=== PATIENT | male | born 1950 | race Caucasian/White ===

== ENCOUNTER 2016-09-18 16:21 | Inpatient (IN) | payer OTHER, MEDICARE ==
[~2016-09-18] VITALS: Ht 180.3 cm; Wt 136.5 kg
[~2016-09-18 16:21] MED LIST: LOVA1TAB47 PO; TELM40 PO
[2016-09-25] MEDS ORDERED: ENOX40P SQ (06:40)
[2016-09-25] MEDS ORDERED: ASPI81CH37 CHEW (06:41)
[2016-09-25] MEDS ORDERED: HYDR-3288 PO (06:41)
[2016-09-25] MEDS ORDERED: BISACODYL 10 MG SUPP RECTAL PRN (06:45)
[2016-09-25] MEDS ORDERED: SODIUM CHLORID 0.9% 500 ML IV PRN (06:45)
[2016-09-25] MEDS ORDERED: ROPIVACAINE PERI-ARTICULAR INJECTION. P-ARTICULR SCH ×5 (06:45)
[2016-09-25] MEDS ORDERED: SODIUM CHLORIDE 0.9% FLUSH 5 ML FLUSH IVF PRN (06:45)
[2016-09-25] MEDS ORDERED: ceFAZolin 2 GM PREMIX 50 ML IV SCH (06:45)
[2016-09-25] MEDS ORDERED: INSULIN HUMAN REGULAR 1,000 UNITS/10 ML VIAL SQ PRN (06:45)
[2016-09-25] MEDS ORDERED: DEXAMETHASONE SOD PHOS 20 MG/5 ML VIAL IV SCH (06:45)
[2016-09-25] MEDS ORDERED: SODIUM CHLORIDE 0.9% IV SCH (06:45)
[2016-09-25] MEDS ORDERED: NALOXONE HCL 0.4 MG/ML AMP IV PRN (06:45)
[2016-09-25] MEDS ORDERED: ALUMINUM/MAGNESIUM/SIMETH 30 ML CUP PO PRN (06:45)
[2016-09-25] MEDS ORDERED: METOPROLOL TARTRATE 25 MG TAB PO PRN (06:45)
[2016-09-25] MEDS ORDERED: POVIDONE IODINE 7.5% SCRUB 118 ML BOTTLE TOPICAL SCH (06:45)
[2016-09-25] MEDS ORDERED: POVIDONE IODINE 5% (ANTISEPSIS KIT) 4 APPLICATIONS EACH NARE PRN (06:45)
[2016-09-25] MEDS ORDERED: VANCOMYCIN 1000 MG/NS 250 ML (for <70 kg) IV SCH ×2 (06:45)
[2016-09-25] MEDS ORDERED: Post-op Orders (for Pharmacy) MISC XX ONE (06:45)
[2016-09-25] MEDS ORDERED: diphenhydrAMINE HCL 50 MG/ML VIAL IV PRN (06:45)
[2016-09-25] MEDS ORDERED: CHLORHEXIDINE GLUCONATE 2 % 1 PACK (2 CLOTHS) TOPICAL PRN (06:45)
[2016-09-25] MEDS ORDERED: ZOLPIDEM TARTRATE 5 MG TAB PO PRN (06:45)
[2016-09-25] MEDS ORDERED: LACTATED RINGER'S 1000 ML IV PRN (06:45)
[2016-09-25] MEDS ORDERED: TRANEXAMIC ACID IV SCH (06:45)
[2016-09-25] MEDS ORDERED: ONDANSETRON HCL 4 MG/2 ML VIAL IVP PRN (06:45)
[2016-09-25] MEDS ORDERED: CHLORHEXIDINE GLUCONATE 4% SOLN 120 ML BTL TOPICAL SCH (06:45)
[2016-09-25] MEDS ORDERED: TRANEXAMIC PERI-ARTICULAR 3,000 MG/NS 100 ML P-ARTICULR SCH ×2 (06:45)
[2016-09-25] MEDS ORDERED: ACETAMINOPHEN/HYDROcodone 325 MG/7.5 MG TAB PO PRN (06:45)
[2016-09-25] MEDS ORDERED: OMEP20TA PO (06:55)
[2016-09-25] MEDS ORDERED: VITA100064 PO (06:55)
[2016-09-25] MEDS ORDERED: FURO40TA PO (06:55)
[2016-09-25] MEDS ORDERED: LISI-515 PO (06:55)
[2016-09-25] MEDS ORDERED: ATOR20TA15 PO (06:55)
[2016-09-25] MEDS ORDERED: LISI20TA PO (06:55)
[2016-09-25 07:02] VITALS: BP 131/69; PULSE 56; RESP 18; TEMP 98.2; O2SAT 97
[2016-09-25] MEDS ORDERED: GENTAMICIN SULFATE 80 MG/2 ML VIAL ONE (07:19)
[2016-09-25] MEDS ORDERED: BUPIVACAINE LIPOSOME PF 1.3% 20 ML VIAL ONE (07:52)
[2016-09-25] MEDS ORDERED: MIDAZOLAM HCL 2 MG/2 ML VIAL ONE (08:09)
[2016-09-25] MEDS ORDERED: FAMOTIDINE 20 MG/2 ML VIAL ONE (08:09)
[2016-09-25] MEDS: SODIUM CHLORIDE 0.9% FLUSH 5 ML FLUSH IVF SCH ×2 (09:00→21:00)
[2016-09-25] MEDS: LOSARTAN 50 MG TAB PO SCH (09:00)
[2016-09-25] MEDS ORDERED: ACETAMINOPHEN 1000 MG/100 ML VIAL IV ONE (09:43)
[2016-09-25] MEDS ORDERED: HYDROmorphone HCL PF 2 MG/ML VIAL ONE (09:43)
[2016-09-25] MEDS ORDERED: NEOSTIGMINE 3 MG/3 ML SYR IV ONE (10:30)
[2016-09-25] MEDS ORDERED: PROPOFOL 200 MG/20 ML AMP IV ONE (10:30)
[2016-09-25] MEDS ORDERED: LACTATED RINGER'S 1000 ML INJ 1,000 ML IV ONE (10:31)
[2016-09-25] MEDS ORDERED: ONDANSETRON HCL 4 MG/2 ML VIAL IV PUSH ONE (10:31)
[2016-09-25] MEDS ORDERED: DO NOT ADM ANY ANTICOAGULANT DRUGS PRN (11:01)
[2016-09-25] MEDS ORDERED: *morphine SULFATE 8 MG/ML PERIprocedure ONLY ONE ×3 (11:13→11:46)
[2016-09-25] MEDS ORDERED: fentaNYL CITRATE 250 MCG/5 ML AMP ONE (11:13)
[2016-09-25] MEDS: SODIUM CHLOR 0.9% 1000 ML INJ 1,000 ML IV SCH ×3 (11:30→22:07)
--- NOTE | 2016-09-25 11:49 | RADRPT ---
EXAM DATE/TIME: 09/25/2016 11:09 [facility] COMPARISON: No previous studies available for comparison. INDICATIONS : Post op right knee surgery. MEDICAL HISTORY : None. SURGICAL HISTORY : None. ENCOUNTER: Initial ACUITY: 1 day PAIN SCORE: 10/10 LOCATION: Right knee FINDINGS: Two view examination of the right knee demonstrates no evidence of fracture or dislocation. The noelle ent is status post right shoulder replacement with prosthesis in good position. Bony mineralization i s normal. The suprapatellar soft tissues have a normal configuration. CONCLUSION: Status post right total knee replacement with prosthesis in good position. Mendoza Silva MD on September 25, 2016 at 11:44 Board Certified Radiologist. This report was verified electronically.
[2016-09-25] MEDS ORDERED: *HYDROmorphone PF 1 MG VIAL PERIprocedural Use ONLY ONE (12:09)
[2016-09-25] MEDS: ceFAZolin 2 GM PREMIX 50 ML IV SCH ×2 (13:42→18:26)
--- NOTE | 2016-09-25 13:42 | MP ---
cc: CORNELIUS AGUDELO M.D. DATE OF SURGERY: 09/25/2016 PREOPERATIVE DIAGNOSIS Right knee osteoarthritis. POSTOPERATIVE DIAGNOSES Right knee osteoarthritis. PROCEDURE Right total knee arthroplasty. SURGEON Dr. Cornelius Agudelo. UPHOLSTERED GOODS CRAFTER BERNARDINO Valdez ANESTHESIA General with a femoral nerve block. ESTIMATED BLOOD LOSS 50 ccs. TOURNIQUET TIME 66 minutes at 250 mmHg. COMPLICATIONS None. IMPLANTS USED DePuy Attune size 9 posterior stabilized femoral component, size 9 rotating platform tibia baseplate, size 5 polyethylene tibial insert, size 38 patella. JUSTIFICATION The patient is a 66-year-old male with history of severe end-stage osteoarthritis involving the right knee. He has severe disabling pain with standing, walking, ambulation, weight-bear activities, even severe pain at rest. He has failed greater than three months of nonoperative conservative treatment to include medication, therapy, injections, ambulatory assisted aids, home exercise program, activity modification, weight loss attempts. X-rays of the right knee reveal severe end-stage osteoarthritis, [id number]-[id number] joint space narrowing, subchondral sclerosis, subchondral cyst, osteophyte formation, varus deformity. The patient was counseled as to the risks, benefits and alternatives to a total knee arthroplasty. The risks were discussed which include but not limited to anesthesia, bleeding, infection, damage to nerves, blood vessels, pain, stiffness, blood clots, pulmonary embolism, even . The patient's pain is severe, he favors the benefits over the risks and did wish to proceed with surgery. PROCEDURE IN DETAIL A written consent was obtained. The patient was identified by name, taken to the operating room and placed supine on the operating table, general anesthesia was administered as well as 2 grams of IV Ancef and 1 gram of IV vancomycin. A well-padded tourniquet was placed on the right thigh. The right lower extremity was prepped and draped using isopropyl alcohol, Hibiclens solution and Chloraprep solution. After time-out was performed an Esmarch bandage was used to exsanguinate the right lower extremity. The tourniquet was inflated to 250 mmHg. A longitudinal incision was made over the anterior aspect of the right knee and medial parapatellar arthrotomy was performed. The patella was everted. Patella resection guide was used to resect 9 mm of patella, size 38 mm guide was placed. Three drill holes were placed and the 38 mm trial fit well. Attention was turned to the femur where an intramedullary guide kathy was placed and the distal femoral resection guide was set to remove 10 mm distal femur, 5 degrees off the anatomic valgus axis alignment. An oscillating saw was used to perform the distal femoral cut. Attention was turned to the tibia where an extramedullary tibial guide was set to remove 4 mm off the lowest portion of the medial tibial plateau. The tibia guide was pinned in place and tibia cut was performed. A 5 mm spacer block showed full extension. Attention was turned back the femur where AP sizing block measured size 9. The anterior reference 3 degree external rotation guide was used to pin a size [address] The anterior, posterior and chamfer cuts were performed. A size 9 PCL box guide was pinned in place. PCL boxed out with an oscillating saw. The medial and lateral meniscus remnants were removed as well as bone and soft tissue debris from posterior portion of the knee. A size 9 tibia base was pinned in place. The tibia was drilled and punched. Trial components were evaluated and final components cemented in place. With the 5-mm tibial insert the leg could achieve full extension 0 degrees, flexion 140, no evidence of tibial lift-off, varus-valgus balance appeared appropriate and symmetric. The tourniquet was deflated. Bovie cautery was used for hemostasis and the knee was thoroughly irrigated with sterile saline pulse lavage antibiotic impregnated solution. The arthrotomy incision was closed with #1 Vicryl suture, the subcutaneous layer with 2-0 Vicryl suture, skin was closed with Dermabond. Sterile dressing was applied. The patient tolerated the procedure well, had no intraoperative complications noted. Marques Bermeo, physician staff physical therapy assistant certified was present during the entire procedure to include patient positioning, the procedure itself. The medical necessity of physician staff physical therapy assistant was indicated in this case due to the complexity of the procedure, he assisted with manipulation of the leg and also retraction of muscle, tendon, bone, neurovascular structures. He assisted with preparation of bone cuts and also implantation of the prosthetic replacement. MD LORENA Ellis/MATTHEW /10:40 AM /1:27 PM
[2016-09-25 14:27] VITALS: BP_SYST 116; BP_SYST 117; BP_DIAS 61; BP_DIAS 71; PULSE 70; RESP 18; TEMP 95.8; O2SAT 100
--- NOTE | 2016-09-25 15:34 | PD.CONS ---
[facility] By [facility] Primary Care Physician Gene Obrien MD Diagnoses: History of Present Illness 66 years old male with history of hypertension hyperlipidemia admitted under orthopedic service for right total knee arthroplasty, patient seen and examined post op, he was sitting on the chair doing well denied chest pain shortness of beath fever chills, knee pain is tolerable. Patient had a history of gastric bypass many years ago. Review of Systems Except as stated in HPI: all other systems reviewed are Neg all system reviewed and positive for what is mentioned in history of present illness otherwise negative Past Family Social History Allergies: Coded Allergies: Codeine (Verified Allergy, Severe, RASH AND SWELLING, 09/25/16) Past Medical History hypertension hyperlipidemia Past Surgical History history of gastric bypass Family History dm Social History patient stopped drinking 3 weeks ago , no tobacco or drug abuse Physical Exam Vital Signs Vital Signs Date Time Temp Pulse Resp B/P Pulse Ox O2 Delivery O2 Flow Rate FiO2 09/25/16 14:27 95.8 70 18 116/71 100 09/25/16 14:27 100 Room Air 09/25/16 12:15 69 12 111/56 96 Nasal Cannula 2 09/25/16 12:00 98.2 70 12 108/54 96 Nasal Cannula 2 09/25/16 11:45 70 12 113/56 96 Nasal Cannula 2 09/25/16 11:30 75 14 106/51 97 Nasal Cannula 2 09/25/16 11:15 72 15 104/51 95 Nasal Cannula 2 09/25/16 11:00 73 14 99/50 96 Nasal Cannula 2 09/25/16 10:59 98.4 74 12 105/52 96 Nasal Cannula 2 09/25/16 07:02 98.2 56 18 131/69 97 Physical Exam GENERAL: This is a well-nourished, well-developed patient, in no apparent distress. SKIN: No rashes, ecchymoses or lesions. Cool and dry. HEAD: Atraumatic. Normocephalic. No temporal or scalp tenderness. EYES: Pupils equal round and reactive. Extraocular motions intact. No scleral icterus. No injection or drainage. ENT: Nose without bleeding, purulent drainage or septal hematoma. Throat without erythema, tonsillar hypertrophy or exudate. Uvula midline. Airway patent. NECK: Trachea midline. No JVD or lymphadenopathy. Supple, nontender, no meningeal signs. CARDIOVASCULAR: Regular rate and rhythm without murmurs, gallops, or rubs. RESPIRATORY: Clear to auscultation. Breath sounds equal bilaterally. No wheezes , rales, or rhonchi. GASTROINTESTINAL: Abdomen soft, non-tender, nondistended. No hepato-splenomegaly , or palpable masses. No guarding. MUSCULOSKELETAL: Extremities without clubbing, cyanosis, or edema. No joint tenderness, effusion, or edema noted. No calf tenderness. Negative Homans sign bilaterally. NEUROLOGICAL: Awake and alert. Cranial nerves II through XII intact. Motor and sensory grossly within normal limits. Five out of 5 muscle strength in all muscle groups. Normal speech. Laboratory Laboratory Tests Test 09/25/16 06:49 Blood Type A NEGATIVE Antibody Screen NEGATIVE Blood Bank Comment Imaging Last Impressions Knee X-Ray 09/25/16 0637 Signed Impressions: Service Date/Time: Sunday, September 25, 2016 11:09 - CONCLUSION: Status post right total knee replacement with prosthesis in good position. Mendoza Silva MD Assessment and Plan Assessment and Plan 66 y/o male s/p R TKA OA s/p R TKA :cont pain mangement , DVT proph on lovenox , PT to start peer ORTHO HTN HLD >> cont home meds DVT proph on lovenox hx of alchol abuse >> pt stated he has been sober for 3 weeks , d/w nurse pt score is less then 4 , we will monitor closely Discussed Condition With pt and nurse Vanesa Hernandez MD Sep 25, 2016 15:34
[2016-09-25 16:36] VITALS: O2SAT 100
[2016-09-25] MEDS: MORPHINE SULFATE 4 MG/ML INJ IV PUSH PRN ×2 (16:56→17:00)
[2016-09-25 17:00] VITALS: BP 113/69; PULSE 55; RESP 20; TEMP 95.6; O2SAT 96
[2016-09-25] MEDS: ACETAMINOPHEN/HYDROcodone 325 MG/7.5 MG TAB PO PRN ×2 (18:21→22:14)
[2016-09-25 19:40] VITALS: BP 110/65; PULSE 58; RESP 17; TEMP 96.5; O2SAT 95
[2016-09-25 20:32] VITALS: O2SAT 96
[2016-09-26 00:10] VITALS: BP 109/66; PULSE 63; RESP 17; TEMP 97; O2SAT 95
[2016-09-26] MEDS: ceFAZolin 2 GM PREMIX 50 ML IV SCH (02:37)
[2016-09-26] MEDS: ACETAMINOPHEN/HYDROcodone 325 MG/7.5 MG TAB PO PRN ×4 (03:16→15:14)
[2016-09-26 04:05] VITALS: BP 120/71; PULSE 56; RESP 17; TEMP 97.3; O2SAT 97
[2016-09-26 06:28] LABS: MEAN CELL VOLUME 89.8 FL (80.0-100.0); MEAN CORPUSCULAR HEMOGLOBIN 30.5 PG (27.0-34.0); PLATELET COUNT 250 TH/MM3 (150-450); RED BLOOD COUNT 3.79 MIL/MM3 (4.50-5.90); RED CELL DISTRIBUTION WIDTH 13.4 % (11.6-17.2); REVIEW FLAG FINAL
[2016-09-26 06:41] LABS: POTASSIUM 3.8 MEQ/L (3.5-5.1)
[2016-09-26 08:00] VITALS: BP 128/70; PULSE 52; RESP 19; TEMP 97.6; O2SAT 97
--- NOTE | 2016-09-26 08:28 | PD.ORT.PN ---
Subjective Post Op Day #: 1 Subjective Remarks pain under control. denies cp and sob. Objective Vitals Vital Signs Date Time Temp Pulse Resp B/P Pulse Ox O2 Delivery O2 Flow Rate FiO2 09/26/16 08:00 97.6 52 19 128/70 97 09/26/16 04:05 97.3 56 17 120/71 97 09/26/16 00:10 97.0 63 17 109/66 95 09/25/16 20:32 96 21 09/25/16 20:00 Room Air 09/25/16 19:40 96.5 58 17 110/65 95 09/25/16 17:00 95.6 55 20 113/69 96 09/25/16 16:36 100 09/25/16 14:27 95.8 70 18 116/71 100 09/25/16 14:27 100 Room Air 09/25/16 12:15 69 12 111/56 96 Nasal Cannula 2 09/25/16 12:00 98.2 70 12 108/54 96 Nasal Cannula 2 09/25/16 11:45 70 12 113/56 96 Nasal Cannula 2 09/25/16 11:30 75 14 106/51 97 Nasal Cannula 2 09/25/16 11:15 72 15 104/51 95 Nasal Cannula 2 09/25/16 11:00 73 14 99/50 96 Nasal Cannula 2 09/25/16 10:59 98.4 74 12 105/52 96 Nasal Cannula 2 I/O 09/25/16 09/25/16 09/25/16 09/26/16 09/26/16 09/26/16 07:00 15:00 23:00 07:00 15:00 23:00 Intake Total 2340 ml 480 ml 480 ml Output Total 1500 ml 200 ml Balance 840 ml 280 ml 480 ml Intake Oral 240 ml 480 ml 480 ml IV Total 100 ml Other 2000 ml Output Urine Total 1300 ml 200 ml Estimated Blood Loss 200 ml # Bowel Movements 0 0 0 Result Diagram: 09/26/16 05009/26/16 050 Objective Remarks in bed, nad incision no erythema, no drainage neg homans nvi Assessment & Plan Ortho Post Op Day #: 1 Problem List: Assessment and Plan s/p R TKA wbat daily dressing changes lovenox d/c planning home with hhc and pt - cleared today after PT if pain under control rx in chart f/up dr. tate 2 weeks Jordan Bermeo Sep 26, 2016 08:28
--- NOTE | 2016-09-26 08:30 | HHI.DCPOC ---
Discharge Care Plan Diagnosis: (1) Primary localized osteoarthrosis, lower leg Your Health Problems Are: Difficulty with ADL Goals to Promote Your Health * To prevent worsening of your condition and complications * To maintain your health at the optimal level Directions to Meet Your Goals Take your medications as prescribed Follow your dietary instruction Follow activity as directed Keep your appointments as scheduled Take your immunizations and boosters as scheduled If your symptoms worsen call your PCP, if no PCP go to Urgent Care Center or Emergency Room Smoking is Dangerous to Your Health. Avoid second hand smoke Call the 24-hour hour crisis hotline for domestic abuse at Jordan Bermeo Sep 26, 2016 08:30
--- NOTE | 2016-09-26 08:31 | HHI.FF ---
Face to Face Verification Diagnosis: (1) Primary localized osteoarthrosis, lower leg Physical Therapy Gait training, Safety evaluation, Transfer training, bed to chair Knee: Total knee, Protocol: Right, Full weight bearing Right LE Weight Bearing: WB as tolerated Nursing RN: 3 days/week x 2 weeks Nursing: Gurjit teaching, Dressing changes Dressing Changes: Daily dressing change I have seen patient Hardik Raza on 09/26/16. My clinical findings support the need for the requested home health care services because: Limited ability to care for self High risk of falls I certify that my clinical findings support that this patient is homebound because: Post-op weakness Unsteady gait/balance Jordan Bermeo Sep 26, 2016 08:31
[2016-09-26] MEDS ORDERED: COMMODE 3-IN-11 MIS (08:32)
[2016-09-26] MEDS: SODIUM CHLORIDE 0.9% FLUSH 5 ML FLUSH IVF SCH (09:00)
[2016-09-26] MEDS: LOSARTAN 50 MG TAB PO SCH (10:44)
[2016-09-26] MEDS: SODIUM CHLOR 0.9% 1000 ML INJ 1,000 ML IV SCH (10:44)
[2016-09-26] MEDS ORDERED: ENOXAPARIN SODIUM 40 MG/0.4 ML SYRINGE SQ SCH (11:00)
--- NOTE | 2016-09-26 11:03 | HHI.PR ---
Subjective Remarks Recovering well. Patient ambulatory. Pain control. Medically clear for discharge today. Resume home treatments of hyperlipidemia and hypertension. Objective Vital Signs Date Time Temp Pulse Resp B/P Pulse Ox O2 Delivery O2 Flow Rate FiO2 09/26/16 08:00 97.6 52 19 128/70 97 09/26/16 04:05 97.3 56 17 120/71 97 09/26/16 00:10 97.0 63 17 109/66 95 09/25/16 20:32 96 21 09/25/16 20:00 Room Air 09/25/16 19:40 96.5 58 17 110/65 95 09/25/16 17:00 95.6 55 20 113/69 96 09/25/16 16:36 100 09/25/16 14:27 95.8 70 18 116/71 100 09/25/16 14:27 100 Room Air 09/25/16 12:15 69 12 111/56 96 Nasal Cannula 2 09/25/16 12:00 98.2 70 12 108/54 96 Nasal Cannula 2 09/25/16 11:45 70 12 113/56 96 Nasal Cannula 2 09/25/16 11:30 75 14 106/51 97 Nasal Cannula 2 09/25/16 11:15 72 15 104/51 95 Nasal Cannula 2 I/O 09/25/16 09/25/16 09/25/16 09/26/16 09/26/16 09/26/16 07:00 15:00 23:00 07:00 15:00 23:00 Intake Total 2340 ml 480 ml 480 ml 1971 ml Output Total 1500 ml 200 ml Balance 840 ml 280 ml 480 ml 1971 ml Intake Oral 240 ml 480 ml 480 ml IV Total 100 ml 1971 ml Other 2000 ml Output Urine Total 1300 ml 200 ml Estimated Blood Loss 200 ml # Bowel Movements 0 0 0 Result Diagram: 09/26/16 0502 09/26/16 0502 Objective Remarks GENERAL: NAD, A&Ox3 HEAD: Normocephalic. NECK: Supple, trachea midline. No lymphadenopathy. EYES: No scleral icterus. No injection or drainage. CARDIOVASCULAR: Regular rate and rhythm without murmurs, gallops, or rubs. RESPIRATORY: Breath sounds equal bilaterally. No accessory muscle use. GASTROINTESTINAL: Abdomen soft, non-tender, nondistended. MUSCULOSKELETAL: No cyanosis, or edema. Bandage of her right knee wound. SKIN: Warm and dry. NEURO: No focal neurological deficitis. A/P Problem List: (1) HTN (hypertension) ICD Code: I10 (2) HLD (hyperlipidemia) ICD Code: E78.5 (3) Primary localized osteoarthrosis, lower leg ICD Code: M17.10 (4) Status post total knee replacement, right ICD Code: Z96.651 Assessment and Plan Assessment and plan 66-year-old male admitted for right knee replacement Status post right total knee Continue PT Follow up as an outpatient with orthopedic surgery When necessary pain treatments Medically stable for discharge to home today Hypertension Controlled Resume baseline treatments at return to home Hyperlipidemia Resume home treatments and follow as an outpatient Discharge planning Medically clear for discharge today Tavon Meng MD Sep 26, 2016 11:03 am
[2016-09-26 12:00] VITALS: BP 114/63; PULSE 68; RESP 18; TEMP 98.5; O2SAT 96
[2016-09-26] MEDS ORDERED: MULTIVITAMINS/MINERALS THERAPEUTIC TAB PO SCH (21:00)
[2016-09-26] MEDS ORDERED: DOCUSATE SODIUM 100 MG CAP PO SCH (21:00)
--- NOTE | 2016-10-02 11:41 | MD ---
cc: CORNELIUS AGUDELO ADMISSION DATE: 09/25/2016 DISCHARGE DATE: 09/26/2016 ADMISSION DIAGNOSIS Severe degenerative osteoarthritis right knee. DISCHARGE DIAGNOSIS Severe degenerative osteoarthritis right knee. HISTORY OF PRESENT ILLNESS Mr. Raza is a 66-year-old male who presented to the [facility] for evaluation by Dr. Cornelius Agudelo regarding his progressive right knee pain. The patient states the pain has been bothering him for greater than six months duration and is currently limiting his activities of daily living. He states this pain is a severe aching sensation which is aggravated by weightbearing activities. He has no alleviating factors at this point in time. In the past he has tried medications, bracing, therapy, home exercise, weight loss attempts as well as corticosteroid injections without relief of symptoms. The patient does have x-ray evidence of severe degenerative osteoarthritis of the right knee. While in the office the patient was counseled on his diagnosis and treatment options. The risks, benefits and indications were all discussed in great detail. The patient did elect to proceed with surgical intervention to include a right total knee arthroplasty. DATE OF SURGERY 09/25/2014 - Right total knee arthroplasty. POSTOP After surgery the patient was admitted to [facility] where he received appropriate medical management, pain control, DVT prophylaxis as well as physical therapy. DISCHARGE Once being discharged from the hospital, the patient is cleared to go home where he will receive home health care and home physical therapy. He is in stable condition and may weight-bear as tolerated. DISCHARGE INSTRUCTIONS He is to receive daily dressing changes and has been instructed on proper wound care management. The patient has been provided with prescriptions for pain control as well as DVT prophylaxis medication. He has also been provided a follow-up appointment to see Dr. Marques Agudelo in the office in approximately two weeks from the date of surgery. DISCHARGE INSTRUCTIONS: She can weight bear as tolerated. She is to receive daily dressing changes. DISCHARGE MEDICATIONS: The patient has been provided with prescriptions for both pain medication as well as DVT prophylaxis medication, Lovenox 40 mg. The patient has asked appropriate questions which have been answered. The patient has been discharged. Dictated by: Marques Bermeo PA-C MD LORENA Ellis/LISSY /7:58 AM /11:36 AM
== END 2016-09-26 15:48 | disposition home health service (06) | DRG 470 ==
LOC: HSDI 09-25 05:44 → N06A 09-25 12:35
PROVIDERS: ADMIT Orthopaedic Surgery Sports Medicine; ATTEND Orthopaedic Surgery Sports Medicine
PROC: 3E0T3CZ (ICD-10-PCS; 2016-09-25)
PROC: 0SRC0J9 Replacement of Right Knee Joint with Synthetic Substitute, Cemented, Open Approach (ICD-10-PCS; principal; 2016-09-25 08:13)
DX: M17.11 Unilateral primary osteoarthritis, right knee (principal); I10 Essential (primary) hypertension; E78.5 Hyperlipidemia, unspecified; Z98.84 Bariatric surgery status
CPT/HCPCS: 73560; 80048; 85027; 86850; 86900; 86901; 94150; C1776; C9290; J0131; J0171; J0690; J0735; J1100; J1170; J1580; J1650; J1885; J2250; J2270; J2405; J2710; J2795; J3010; J3370; J7030; J7050; J7120; L1830

== ENCOUNTER 2017-02-12 05:19 | Inpatient (IN) | payer OTHER, MEDICARE ==
[~2017-02-12] VITALS: Ht 179.3 cm; Wt 128.3 kg
[~2017-02-12 05:19] MED LIST changes: +FURO40TA PO; +LISI20TA PO; -LOVA1TAB47 PO; +OMEP20TA PO; -TELM40 PO
[2017-02-12] MEDS ORDERED: INSULIN HUMAN REGULAR 1,000 UNITS/10 ML VIAL SQ PRN (06:00)
[2017-02-12] MEDS ORDERED: ceFAZolin 2 GM PREMIX 50 ML IV SCH (06:00)
[2017-02-12] MEDS ORDERED: DEXAMETHASONE SOD PHOS 20 MG/5 ML VIAL IV SCH (06:00)
[2017-02-12] MEDS ORDERED: METOPROLOL TARTRATE 25 MG TAB PO PRN (06:00)
[2017-02-12] MEDS ORDERED: SODIUM CHLORID 0.9% 500 ML IV PRN (06:00)
[2017-02-12] MEDS ORDERED: VANCOMYCIN 1000 MG/NS 250 ML (for <70 kg) IV SCH ×2 (06:00)
[2017-02-12] MEDS ORDERED: LACTATED RINGER'S 1000 ML IV PRN (06:00)
[2017-02-12] MEDS ORDERED: CHLORHEXIDINE GLUCONATE 4% SOLN 120 ML BTL TOPICAL SCH (06:00)
[2017-02-12] MEDS ORDERED: POVIDONE IODINE 7.5% SCRUB 118 ML BOTTLE TOPICAL SCH (06:00)
[2017-02-12] MEDS ORDERED: POVIDONE IODINE 5% (ANTISEPSIS KIT) 4 APPLICATIONS EACH NARE PRN (06:00)
[2017-02-12] MEDS ORDERED: CHLORHEXIDINE GLUCONATE 2 % 1 PACK (2 CLOTHS) TOPICAL PRN (06:00)
[2017-02-12] MEDS ORDERED: ENOX40P SQ (06:48)
[2017-02-12] MEDS ORDERED: GENTAMICIN SULFATE 80 MG/2 ML VIAL ONE (06:48)
[2017-02-12] MEDS ORDERED: ASPI81CH37 CHEW (06:49)
[2017-02-12] MEDS ORDERED: HYDR-3288 PO (06:50)
[2017-02-12] MEDS ORDERED: ONDANSETRON HCL 4 MG/2 ML VIAL IVP PRN (07:00)
[2017-02-12] MEDS ORDERED: diphenhydrAMINE HCL 50 MG/ML VIAL IV PUSH PRN (07:00)
[2017-02-12] MEDS ORDERED: Post-op Orders (for Pharmacy) MISC XX ONE (07:00)
[2017-02-12] MEDS ORDERED: ZOLPIDEM TARTRATE 5 MG TAB PO PRN (07:00)
[2017-02-12] MEDS ORDERED: MORPHINE SULFATE 4 MG/ML INJ IV PUSH PRN (07:00)
[2017-02-12] MEDS ORDERED: SODIUM CHLORIDE 0.9% FLUSH 5 ML FLUSH IVF PRN (07:00)
[2017-02-12] MEDS ORDERED: NALOXONE HCL 0.4 MG/ML AMP IV PUSH PRN (07:00)
[2017-02-12] MEDS ORDERED: BUPIVACAINE LIPOSOME PF 1.3% 20 ML VIAL ONE (07:20)
[2017-02-12] MEDS ORDERED: BISACODYL 10 MG SUPP RECTAL PRN (08:00)
[2017-02-12] MEDS ORDERED: ACETAMINOPHEN/HYDROcodone 325 MG/7.5 MG TAB PO PRN (08:00)
[2017-02-12] MEDS ORDERED: TRANEXAMIC ACID IV SCH (08:30)
[2017-02-12] MEDS ORDERED: SODIUM CHLORIDE 0.9% IV SCH (08:30)
[2017-02-12] MEDS ORDERED: ROPIVACAINE PERI-ARTICULAR INJECTION. P-ARTICULR SCH ×5 (08:30)
[2017-02-12] MEDS ORDERED: TRANEXAMIC PERI-ARTICULAR 3,000 MG/NS 100 ML P-ARTICULR SCH ×2 (08:30)
[2017-02-12] MEDS: SODIUM CHLORIDE 0.9% FLUSH 5 ML FLUSH IVF SCH ×2 (09:00→21:38)
[2017-02-12] MEDS: FUROSEMIDE 40 MG TAB PO SCH (09:00)
[2017-02-12] MEDS ORDERED: DO NOT ADM ANY ANTICOAGULANT DRUGS PRN (10:46)
[2017-02-12] MEDS ORDERED: *morphine SULFATE 8 MG/ML PERIprocedure ONLY ONE ×2 (10:50→11:17)
--- NOTE | 2017-02-12 10:53 | MP ---
cc: CORNELIUS AGUDELO DATE OF SURGERY: 02/12/2017 PREOPERATIVE DIAGNOSIS Left knee osteoarthritis. POSTOPERATIVE DIAGNOSES Left knee osteoarthritis. PROCEDURE Left total knee arthroplasty SURGEON Dr. Cornelius Agudelo. INTELLIGENCE CHIEF Cornelius Bermeo PA-C. ANESTHESIA General with an adductor canal nerve block. ESTIMATED BLOOD LOSS 100 cc. TOURNIQUET TIME 44 minutes at 250 mmHg. COMPLICATIONS None. IMPLANTS USED DePuy Attune size 8 posterior stabilized femoral component, size 9 rotating platform tibia baseplate, size 5 mm tibial insert, size 38 patella. JUSTIFICATION This patient is a 67-year-old male with a history of severe end-stage osteoarthritis involving the left knee. He has severe disabling pain with standing, walking, ambulation and weightbearing activities. The pain interferes with his activities of daily living. He has failed greater than 3 months of nonoperative conservative treatment to include medication therapy, injections, ambulatory assisted aids, home exercise program, activity modification and weight loss. X-rays of the left knee revealed severe end-stage osteoarthritis, [id number] joint space narrowing, subchondral sclerosis, subchondral cysts, osteophyte formation with varus deformity. The patient was counseled as to the risks, benefits and alternatives to a total knee arthroplasty. The risks were discussed which include but limited to anesthesia, bleeding, infection, damage to nerves, blood vessels, pain, stiffness, failure of hardware and components, blood clots, pulmonary embolism, and even . The patient's pain is severe. He favored the benefits over the risks. He did wish to proceed with surgery. PROCEDURE IN DETAIL A written consent was obtained. The patient was identified by name, taken to the operating room and placed supine on the operating table. General anesthesia was administered as well as 2 grams of IV Ancef and one gram of IV vancomycin. A well-padded tourniquet was placed on the left thigh. The left lower extremity was prepped and draped using isopropyl alcohol, Hibiclens solution and DuraPrep solution. After a timeout was performed an Esmarch bandage was used to exsanguinate the left lower extremity and tourniquet was inflated to 250 mmHg. A longitudinal incision was made over the anterior aspect of the left knee. A medial parapatellar arthrotomy was performed. The patella was everted. A patellar resection guide was used to resect 9 mm of patella. The size 38 mm guide was placed. Three drills holes were placed and the 38 mm trial fit well. Attention was turned to the femur where an intramedullary guide kathy was placed and the distal femoral guide was set to remove 11 mm of distal femur 5 degrees off the anatomic valgus axis alignment. An oscillating saw was used to perform the distal femoral cut. Attention was turned to the tibia where an extramedullary tibial guide was set to remove 5 mm off the lowest portion of the medial tibial plateau. The tibial guide was pinned in place and a tibia cut was performed. A 5 mm spacer block showed full extension. Attention was turned back to the femur where the AP sizing block measured a size 8. The anterior reference 3 degree external rotation guide was used to pin a size [address] Anterior, posterior and chamfer cuts were performed. A size 8 PCL box guide was pinned in place. The PCL was box cut with an oscillating saw. The medial and lateral meniscus remnants were removed as well as bone and soft tissue debris from the posterior portion of the knee. A size 9 tibia baseplate was pinned in place and the tibia was drilled and punched. The trial components were evaluated and the final components were cemented in place. With the current components the leg could achieve full extension to 0 degrees and flexion to 140. No evidence of tibial lift-off. Varus-valgus balance appeared appropriate and symmetric. The tourniquet was deflated. Bovie cautery was used for hemostasis. The surgical wound was thoroughly irrigated with sterile saline pulse lavage antibiotic-impregnated solution. The arthrotomy incision was closed with #1 Vicryl suture, the subcutaneous layer with 2-0 Vicryl suture and skin was closed with Dermabond. Sterile dressing was applied. The patient tolerated the procedure well with no intraoperative complications noted. Cornelius Bermeo, physician nutritional assistant certified, was present during the entire procedure to include patient positioning and the procedure itself. The medical necessity of the physician nutritional assistant was indicated in this case due to the complexity of the procedure. He assisted with appropriate manipulation of the leg and also retraction of muscle, tendon, bone and neurovascular structures. He assisted with bone cuts and also implantation of the prosthetic replacement. MD LORENA Ellis/BRITT /10:17 AM 10:34 AM
[2017-02-12] MEDS: SODIUM CHLOR 0.9% 1000 ML INJ 1,000 ML IV SCH ×2 (11:20→17:44)
--- NOTE | 2017-02-12 11:36 | RADRPT ---
EXAM DATE/TIME: 02/12/2017 10:14 [facility] COMPARISON: No previous studies available for comparison. INDICATIONS : Post op left knee surgery MEDICAL HISTORY : None. SURGICAL HISTORY : None. ENCOUNTER: Initial ACUITY: 1 day PAIN SCORE: 4/10 LOCATION: Left knee FINDINGS: AP and lateral views of the knee following arthroplasty reveals a prosthesis in anatomic alignment. F racture is not appreciated. Surgical drain is evident CONCLUSION: Status post total knee arthroplasty. Rylan Ramirez MD FACR Board Certified Radiologist. This report was verified electronically.
[2017-02-12 12:00] VITALS: BP 144/68; PULSE 71; RESP 18; TEMP 97.1; O2SAT 98
--- NOTE | 2017-02-12 12:32 | PD.CONS ---
HPI Service [facility] Hospitalists Consult Requested By Orthopedic surgery Reason for Consult Medical management Primary Care Physician Gene Obrien MD Diagnoses: History of Present Illness Mr. Raza is a pleasant 67-year-old male with a history of hypertension, osteoarthritis who underwent elective left total knee arthroplasty on 02/12/2017. Hospitalist service was consulted for medical management. At the time of this interview, patient denies any chest pain, shortness of breath, fever or chills. His pain is well controlled and he has already ambulated. Denies any abdominal pain, dysuria, constipation or diarrhea. Review of Systems Except as stated in HPI: all other systems reviewed are Neg Past Family Social History Allergies: Coded Allergies: codeine (Unverified Allergy, Severe, RASH AND SWELLING, 02/12/17) Past Medical History Hypertension, rotator cuff injury, osteoarthritis Past Surgical History Right total knee arthroplasty, right rotator cuff repair, gastric bypass. Reported Medications LisinoprilHC2011 0.5 mg daily Aspirin 81 mg daily [place] 7.5325 every 6 hours when necessary Furosemide 40 mg by mouth daily Omeprazole 20 mg by mouth daily Family History Father had dementia Social History Patient denies using tobacco, alcohol, illicit drugs. Physical Exam Vital Signs Vital Signs Date Time Temp Pulse Resp B/P (MAP) Pulse Ox O2 Delivery O2 Flow Rate FiO2 02/12/17 11:30 98.6 72 15 133/67 (89) 96 Nasal Cannula 2 02/12/17 11:15 74 15 125/60 (81) 97 Nasal Cannula 2 02/12/17 11:00 76 17 146/69 (94) 97 Nasal Cannula 2 02/12/17 10:45 98.6 78 16 148/70 (96) 97 Nasal Cannula 2 02/12/17 06:40 97.5 55 16 135/69 (91) 98 Physical Exam GENERAL: This is a well-nourished, well-developed patient, in no apparent distress. SKIN: No rashes, ecchymoses or lesions. Warm and dry. HEAD: Atraumatic. Normocephalic. No temporal or scalp tenderness. EYES: Pupils equal round and reactive. No injection or drainage. ENT: Nose without bleeding, purulent drainage or septal hematoma. Airway patent. NECK: Trachea midline. No lymphadenopathy. Supple, nontender, no meningeal signs. CARDIOVASCULAR: Regular rate and rhythm without murmurs, gallops, or rubs. No JVD. RESPIRATORY: Clear to auscultation. Breath sounds equal bilaterally. No wheezes , rales, or rhonchi. GASTROINTESTINAL: Abdomen soft, non-tender, nondistended. No guarding. MUSCULOSKELETAL: Extremities without clubbing, cyanosis, or edema. Status post left TKA. Able to move all toes. NEUROLOGICAL: Awake and alert. Cranial nerves II through XII intact. No focal neurological deficits. Normal speech. Imaging Last Impressions Knee X-Ray 02/12/17 0646 Signed Impressions: Service Date/Time: Sunday, February 12, 2017 10:14 - CONCLUSION: Status post total knee arthroplasty. Rylan Ramirez MD Assessment and Plan Problem List: (1) Primary osteoarthritis of left knee ICD Code: M17.12 - Unilateral primary osteoarthritis, left knee (2) HTN (hypertension) ICD Code: I10 - Essential (primary) hypertension Status: Acute (3) GERD (gastroesophageal reflux disease) ICD Code: K21.9 - Gastro-esophageal reflux disease without esophagitis (4) Status post total knee replacement, right ICD Code: Z96.651 - Presence of right artificial knee joint Status: Acute Assessment and Plan Mr. Raza is a pleasant 67-year-old male with a history of hypertension, GERD, osteoarthritis who underwent elective left total knee arthroplasty on 02/12/2017. Hospitalist service was consulted for medical management. - Left knee osteoarthritis - Status post left total knee arthroplasty on 02/12/2017 - Continue [place], morphine when necessary for pain management. - Bowel regimen include Colace, Dulcolax suppository. - Lovenox 40 mg every 24 hours starting 02/13/2017. - Hypertension - Continue lisinopril 20 mg daily, HCTZ 12.5 mg daily, furosemide 40 mg daily. - GERD - continue pantoprazole 20 mg daily. Full code. Lovenox starting 02/13/2017. Thank you for the consult. We'll continue to follow this patient with you. David Rodriguez DO Feb 12, 2017 12:32 pm
[2017-02-12] MEDS: PANTOPRAZOLE SOD 20 MG DELAYED RELEASE TAB PO SCH (12:50)
[2017-02-12] MEDS: ACETAMINOPHEN/HYDROcodone 325 MG/7.5 MG TAB PO PRN ×3 (12:50→21:38)
[2017-02-12] MEDS: HYDROCHLOROTHIAZIDE 12.5 MG CAP PO SCH (12:51)
[2017-02-12] MEDS: LISINOPRIL 20 MG TAB PO SCH (12:51)
[2017-02-12 16:00] VITALS: BP 108/54; PULSE 75; RESP 18; TEMP 96.5; O2SAT 96
[2017-02-12 20:34] VITALS: BP 103/59; PULSE 73; RESP 18; TEMP 98; O2SAT 95
[2017-02-13 01:09] VITALS: BP 93/52; PULSE 55; RESP 18; TEMP 97; O2SAT 96
[2017-02-13] MEDS: ACETAMINOPHEN/HYDROcodone 325 MG/7.5 MG TAB PO PRN ×4 (02:13→15:16)
[2017-02-13 04:43] VITALS: BP 96/50; PULSE 51; RESP 18; TEMP 96.3; O2SAT 96
[2017-02-13] MEDS: SODIUM CHLOR 0.9% 1000 ML INJ 1,000 ML IV SCH ×2 (04:53→14:00)
[2017-02-13 06:42] LABS: HEMATOCRIT 26.3 % (39.0-51.0); MEAN CELL VOLUME 79.5 FL (80.0-100.0); MEAN CORPUSCULAR HEMOGLOBIN 26.8 PG (27.0-34.0); MEAN CORPUSCULAR HGB CONC 33.7 % (32.0-36.0); PLATELET COUNT 227 TH/MM3 (150-450); RED BLOOD COUNT 3.31 MIL/MM3 (4.50-5.90); RED CELL DISTRIBUTION WIDTH 13.6 % (11.6-17.2); REVIEW FLAG FINAL; WHITE BLOOD COUNT 9.9 TH/MM3 (4.0-11.0)
[2017-02-13 07:14] LABS: BICARBONATE 26.8 MEQ/L (21.0-32.0); POTASSIUM 3.9 MEQ/L (3.5-5.1)
[2017-02-13 08:00] VITALS: BP 107/65; PULSE 55; RESP 18; TEMP 97.8; O2SAT 95
--- NOTE | 2017-02-13 08:28 | PD.ORT.PN ---
Subjective Post Op Day #: 1 Subjective Remarks pain controlled. Objective Vitals Vital Signs Date Time Temp Pulse Resp B/P (MAP) Pulse Ox O2 Delivery O2 Flow Rate FiO2 02/13/17 08:00 97.8 55 18 107/65 (79) 95 02/13/17 04:43 96.3 51 18 96/50 (65) 96 02/13/17 01:09 97.0 55 18 93/52 (66) 96 02/12/17 20:52 21 02/12/17 20:34 98.0 73 18 103/59 (74) 95 02/12/17 16:00 96.5 75 18 108/54 (72) 96 02/12/17 14:02 Nasal Cannula 2.00 02/12/17 12:00 97.1 71 18 144/68 (93) 98 02/12/17 11:30 98.6 72 15 133/67 (89) 96 Nasal Cannula 2 02/12/17 11:15 74 15 125/60 (81) 97 Nasal Cannula 2 02/12/17 11:00 76 17 146/69 (94) 97 Nasal Cannula 2 02/12/17 10:45 98.6 78 16 148/70 (96) 97 Nasal Cannula 2 I/O 02/12/17 02/12/17 02/12/17 02/13/17 02/13/17 02/13/17 07:00 15:00 23:00 07:00 15:00 23:00 Intake Total 2080 ml 314 ml 100 ml Output Total 400 ml 775 ml Balance 1680 ml 314 ml -675 ml Intake Oral 480 ml IV Total 100 ml 314 ml 100 ml Other 1500 ml Output Urine Total 300 ml 775 ml Estimated Blood Loss 100 ml Result Diagram: 02/13/17 0533 02/13/17 0553 Objective Remarks in bed, nad incision no erythema, no drainage neg homans nvi Assessment & Plan Ortho Post Op Day #: 1 Problem List: Assessment and Plan s/p L TKA wbat daily dressing changes lovenox d/c planning home with [facility] and pt - cleared today if does well with PT rx in chart f/up dr. tate 2 weeks Jordan Bermeo Feb 13, 2017 08:28
--- NOTE | 2017-02-13 08:30 | HHI.DCPOC ---
Discharge Care Plan Diagnosis: (1) Primary localized osteoarthrosis, lower leg Your Health Problems Are: Difficulty with ADL Goals to Promote Your Health * To prevent worsening of your condition and complications * To maintain your health at the optimal level Directions to Meet Your Goals Take your medications as prescribed Follow your dietary instruction Follow activity as directed Keep your appointments as scheduled Take your immunizations and boosters as scheduled If your symptoms worsen call your PCP, if no PCP go to Urgent Care Center or Emergency Room Smoking is Dangerous to Your Health. Avoid second hand smoke Call the 24-hour hour crisis hotline for domestic abuse at Jordan Bermeo Feb 13, 2017 08:30
--- NOTE | 2017-02-13 08:31 | HHI.FF ---
Face to Face Verification Diagnosis: (1) Primary localized osteoarthrosis, lower leg Physical Therapy Gait training, Safety evaluation, Transfer training, bed to chair Knee: Total knee, Protocol: Left, Full weight bearing Left LE Weight Bearing: WB as tolerated Nursing RN: 3 days/week x 2 weeks Nursing: Gurjit teaching, Dressing changes Dressing Changes: Daily dressing change I have seen patient Hardik Raza on 02/13/17. My clinical findings support the need for the requested home health care services because: Limited ability to care for self High risk of falls I certify that my clinical findings support that this patient is homebound because: Post-op weakness Unsteady gait/balance Jordan Bermeo Feb 13, 2017 08:30
[2017-02-13] MEDS ORDERED: COMMODE 3-IN-11 MIS (08:32)
[2017-02-13] MEDS ORDERED: CPMMACHINE (08:32)
[2017-02-13] MEDS ORDERED: WALKER WHEELS/F1 MIS (08:32)
[2017-02-13] MEDS: SODIUM CHLORIDE 0.9% FLUSH 5 ML FLUSH IVF SCH (09:00)
[2017-02-13] MEDS: HYDROCHLOROTHIAZIDE 12.5 MG CAP PO SCH (09:00)
[2017-02-13] MEDS: FUROSEMIDE 40 MG TAB PO SCH (09:00)
[2017-02-13] MEDS: LISINOPRIL 20 MG TAB PO SCH (09:00)
[2017-02-13] MEDS: PANTOPRAZOLE SOD 20 MG DELAYED RELEASE TAB PO SCH (09:04)
[2017-02-13] MEDS ORDERED: ENOXAPARIN SODIUM 40 MG/0.4 ML SYRINGE SQ SCH (10:00)
--- NOTE | 2017-02-13 11:07 | HHI.PR ---
Subjective Remarks Follow-up for left total knee arthroplasty. Patient is currently doing well. Sitting in his chair. Ambulating well and tolerating diet well. No acute concerns. Objective Vitals Vital Signs Date Time Temp Pulse Resp B/P (MAP) Pulse Ox O2 Delivery O2 Flow Rate FiO2 02/13/17 08:00 97.8 55 18 107/65 (79) 95 02/13/17 04:43 96.3 51 18 96/50 (65) 96 02/13/17 01:09 97.0 55 18 93/52 (66) 96 02/12/17 20:52 21 02/12/17 20:34 98.0 73 18 103/59 (74) 95 02/12/17 16:00 96.5 75 18 108/54 (72) 96 02/12/17 14:02 Nasal Cannula 2.00 02/12/17 12:00 97.1 71 18 144/68 (93) 98 02/12/17 11:30 98.6 72 15 133/67 (89) 96 Nasal Cannula 2 02/12/17 11:15 74 15 125/60 (81) 97 Nasal Cannula 2 I/O 02/12/17 02/12/17 02/12/17 02/13/17 02/13/17 02/13/17 07:00 15:00 23:00 07:00 15:00 23:00 Intake Total 2080 ml 314 ml 100 ml Output Total 400 ml 775 ml Balance 1680 ml 314 ml -675 ml Intake Oral 480 ml IV Total 100 ml 314 ml 100 ml Other 1500 ml Output Urine Total 300 ml 775 ml Estimated Blood Loss 100 ml Result Diagram: 02/13/17 0533 02/13/17 0553 Imaging Last Impressions Knee X-Ray 02/12/17 0646 Signed Impressions: Service Date/Time: Sunday, February 12, 2017 10:14 - CONCLUSION: Status post total knee arthroplasty. Rylan Ramirez MD Objective Remarks GENERAL: Alert, oriented 3, NAD. SKIN: Warm and dry. HEAD: Normocephalic. EYES: No scleral icterus. No injection or drainage. NECK: Supple, trachea midline. No JVD or lymphadenopathy. CARDIOVASCULAR: Regular rate and rhythm without murmurs, gallops, or rubs. RESPIRATORY: Breath sounds equal bilaterally. No accessory muscle use. GASTROINTESTINAL: Abdomen soft, non-tender, nondistended. MUSCULOSKELETAL: No cyanosis, or edema. Status post left TKA. BACK: Nontender without obvious deformity. No CVA tenderness. Procedures Left total knee arthroplasty 02/12/2017 A/P Problem List: (1) Primary osteoarthritis of left knee ICD Code: M17.12 - Unilateral primary osteoarthritis, left knee (2) HTN (hypertension) ICD Code: I10 - Essential (primary) hypertension Status: Acute (3) GERD (gastroesophageal reflux disease) ICD Code: K21.9 - Gastro-esophageal reflux disease without esophagitis (4) Status post total knee replacement, right ICD Code: Z96.651 - Presence of right artificial knee joint Status: Acute Assessment and Plan Mr. Raza is a pleasant 67-year-old male with a history of hypertension, GERD, osteoarthritis who underwent elective left total knee arthroplasty on 02/12/2017. Hospitalist service was consulted for medical management. - Left knee osteoarthritis - Status post left total knee arthroplasty on 02/12/2017 - Continue [place], morphine when necessary for pain management. - Bowel regimen include Colace, Dulcolax suppository. - Lovenox 40 mg every 24 hours. - Hypertension - Continue lisinopril 20 mg daily, HCTZ 12.5 mg daily, furosemide 40 mg daily. - GERD - continue pantoprazole 20 mg daily. Full code. Lovenox. David Rodriguez DO Feb 13, 2017 11:07 am
[2017-02-13 11:40] VITALS: O2SAT 95
[2017-02-13 11:50] VITALS: BP 103/57; PULSE 56; RESP 18; TEMP 97.3; O2SAT 95
[2017-02-13] MEDS ORDERED: MULTIVITAMINS/MINERALS THERAPEUTIC TAB PO SCH (21:00)
[2017-02-13] MEDS ORDERED: DOCUSATE SODIUM 100 MG CAP PO SCH (21:00)
--- NOTE | 2017-02-14 09:36 | MD ---
cc: CORNELIUS AGUDELO M.D. ADMISSION DATE: 02/12/2017 DISCHARGE DATE: 02/13/2017 ADMITTING DIAGNOSIS Severe degenerative osteoarthritis left knee. DISCHARGE DIAGNOSIS Severe degenerative osteoarthritis left knee. HISTORY OF PRESENT ILLNESS Mr. Raza is a 67-year-old male who presented to the [facility] for evaluation by Dr. Cornelius Agudelo regarding his progressive left knee pain. The patient states the pain has been progressive and severe and currently inhibiting his activities of daily living. He has no alleviating factors at this point in time, although he started medications, bracing, physical therapy, home exercise and corticosteroid injections without relief of symptoms. He does have a history of a well functioning right total knee arthroplasty. The patient has x-ray evidence of severe degenerative osteoarthritis of the left knee. While in the office, the patient was counseled on his diagnosis and treatment options. The risks, benefits, and indications were all discussed. The patient did elect to proceed with surgical intervention to include a left total knee arthroplasty. Date of surgery 02/12/2017 left total knee arthroplasty. After surgery, the patient admitted to [facility] where he received appropriate medical management, pain control, DVT prophylaxis, as well as physical therapy. DISCHARGE The patient has been discharged from the hospital where he has gone home and will receive home health care and home physical therapy. He is in stable condition. He may weight-bear as tolerated. He is to receive daily dressing changes and has been instructed on appropriate wound care management. He has been provided prescriptions for pain control, as well as DVT prophylaxis medication. He has also been provided a follow-up appointment in approximately two weeks from the date of surgery. The patient asked appropriate questions which have been answered. The patient has been discharged. Dictated by Cornelius Bermeo PA-C MD LORENA Ellis/SEAN /8:01 AM /9:34 AM
== END 2017-02-13 15:23 | disposition home health service (06) | DRG 470 ==
LOC: HSDI 05:19 → N06B 11:56
PROVIDERS: ADMIT Orthopaedic Surgery Sports Medicine; ATTEND Orthopaedic Surgery Sports Medicine
PROC: 3E0T3BZ Introduction of Anesthetic Agent into Peripheral Nerves and Plexi, Percutaneous Approach (ICD-10-PCS; 2017-02-12)
PROC: 0SRD0J9 Replacement of Left Knee Joint with Synthetic Substitute, Cemented, Open Approach (ICD-10-PCS; principal; 2017-02-12 08:14)
DX: M17.12 Unilateral primary osteoarthritis, left knee (principal); Z68.41 Body mass index [BMI] 40.0-44.9, adult; I10 Essential (primary) hypertension; K21.9 Gastro-esophageal reflux disease without esophagitis; Z96.651 Presence of right artificial knee joint; E78.5 Hyperlipidemia, unspecified; E66.9 Obesity, unspecified; Z98.84 Bariatric surgery status
CPT/HCPCS: 73560; 80048; 85027; 86850; 86900; 86901; 94150; C9290; J0690; J0735; J1100; J1580; J1650; J1885; J2270; J2795; J3370; J7030; J7050; J7120; L1830